=== PATIENT | female | born 1985 | race Asian ===

== ENCOUNTER 2016-09-26 19:46 | Emergency (ER) | payer OTHER, BC ==
--- NOTE | 2016-09-26 20:21 | EDM.PDOC ---
ED HPI Trauma - General Chief Complaint: Upper Extremity Injury/Pain Stated Complaint: WORK INJ X 2 DAYS/L ARM PAIN Time Seen by Provider: 09/26/16 19:50 Source: Reports: Patient History Limitations: Reports: No limitations - History of Present Illness INITIAL COMMENTS - FREE TEXT/NARRATIVE: Resents reporting that she slipped and fell on Sunday, striking her left forearm on the ground. Yesterday the forearm, wrist and hand became quite swollen with pain shooting all the way up the arm. By today the swelling has mostly resolved but she still has some tenderness in the right forearm and some pains going up to her shoulder. No other injuries. 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: Musculoskeletal History: Reports: None Neurological History: Reports: None Psychiatric History: Reports: None Endocrine/Metabolic History: Reports: None Hematologic History: Reports: None Dermatologic History: Reports: None - Infectious Disease History Infectious Disease History: Reports: None - Past Surgical History Female Surgical History: Reports: section Social & Family History - Family History Family Medical History: Noncontributory - Tobacco Use Smoking Status *Q: Never Smoker - Caffeine Use Caffeine Use: Reports: Coffee - Recreational Drug Use Recreational Drug Use: No Review of Systems - Review of Systems Review Of Systems: ROS reveals no pertinent complaints other than HPI. Trauma Exam - Physical Exam Exam: See Below Exam Limited By: No limitations General Appearance: Reports: alert, no apparent distress Head: Reports: atraumatic, normocephalic Ears: Reports: normal external exam Nose: Reports: normal inspection Throat/Mouth: Reports: Normal inspection Neck: Reports: non-tender Respiratory Exam: Reports: no respiratory distress Cardiovascular: Reports: normal peripheral pulses Extremities: Reports: normal range of motion, other (Left forearm, hand , wrist without swelling, ecchymosis, erythema, lesions or evidence of injury. CMS intact distally with strong radial pulse) Course - Vital Signs Last Recorded V/S: Last Vital Signs Temp 36.7 C 09/26/16 19:56 Pulse 91 09/26/16 19:56 Resp 16 09/26/16 19:56 BP 127/81 09/26/16 19:56 Pulse Ox 98 09/26/16 19:56 - Orders/Labs/Meds Orders: Active Orders 24 hr Category Date Time Status Forearm 2V Lt [CR] Stat Exams 09/26/16 20:06 Ordered Wrist 2V Lt [CR] Stat Exams 09/26/16 20:06 Ordered Departure - Departure Time of Disposition: 21:28 Disposition: Home, Self-Care 01 Condition: good Clinical Impression: Avulsion fracture Forms: ED Department Discharge Additional Instructions: 1. elevate left upper extremity is much as possible to decrease swelling, may use sling 2. Bro wrap for compression 3. Aleve 2 tabs in the morning and 2 tabs in the evening or ibuprofen 2-3 tabs 3 times a day as needed for pain 4. if symptoms do not improve or worsen please followup in primary care clinic. - My Orders Last 24 Hours: My Active Orders 09/26/16 20:06 Forearm 2V Lt [CR] Stat Wrist 2V Lt [CR] Stat - Assessment/Plan Last 24 Hours: My Active Orders 09/26/16 20:06 Forearm 2V Lt [CR] Stat Wrist 2V Lt [CR] Stat
[2016-09-26 21:48] VITALS: BP 120/80
--- NOTE | 2016-09-28 18:01 | CR ---
EXAM DATE: 09/26/16 PATIENT'S AGE: 30 Patient: ЮЛИЯ HARRISON Facility: [place], [place] Site . Site : 1985 Study: XRay Extremity Left forearm [id number]/14/2017 8:27:10 PM Ordering Physician: Doctor Montes Final Report: INDICATION: Fall. Technique: 2 views left forearm. Findings: Tiny ossific density along the ulnar styloid process consistent with a tiny avulsion fracture. No other fracture or dislocation in left forearm. Probable soft tissue swelling mid to proximal left forearm. Remainder negative. Dictated by Hi Barraza MD @ Sep 26 2016 8:27PM (Electronic Signature) Report Signed by Proxy and Original Signed Document filed in the Medical Record. MICA
--- NOTE | 2016-09-28 18:02 | CR ---
EXAM DATE: 09/26/16 PATIENT'S AGE: 30 Patient: ЮЛИЯ HARRISON Facility: [place], [place] Site . Site : 1985 Study: XRay Extremity Left wrist [id number]/14/2017 8:27:30 PM Ordering Physician: Doctor Montes Final Report: INDICATION: Fall. Technique: Two views left wrist and distal forearm. Findings: Tiny avulsion fracture deformity along the ulnar styloid process. Mild soft tissue swelling left wrist. Small lucencies involving carpal bones benign. Left wrist otherwise negative. Dictated by Hi Barraza MD @ Sep 26 2016 8:29PM (Electronic Signature) Report Signed by Proxy and Original Signed Document filed in the Medical Record. MICA
== END 2016-09-26 21:42 | disposition home or self-care (01) ==
LOC: MW.ED 19:46
DX: S52.92XA Unspecified fracture of left forearm, initial encounter for closed fracture (principal); W01.0XXA Fall on same level from slipping, tripping and stumbling without subsequent striking against object, initial encounter
CPT/HCPCS: 73090-26-LT; 73090-LT; 73100-26-LT; 73100-LT; 99283

== ENCOUNTER → 2016-10-06 | Outpatient (CLI) | payer BC ==
--- NOTE | 2016-10-09 15:06 | CR ---
EXAM DATE: 10/06/16 PATIENT'S AGE: 30 Patient: ЮЛИЯ HARRISON Facility: [place], [place] Site . Site : 1985 Study: XRay Shoulder Left [id number]/24/2017 5:07:51 PM Ordering Physician: Zeke Soto Final Report: Indication: Trauma and pain Technique: Left shoulder 3 views. Comparison: None Findings: Bones: Alignment is normal. No fractures or bone lesions. Joint spaces: Unremarkable. Soft tissues: Unremarkable. Impression: No sign of acute injury. Dictated by Bhupendra Gordon MD @ Oct 08 2016 3:04PM (Electronic Signature) Report Signed by Proxy and Original Signed Document filed in the Medical Record. MTDD
== END ==
LOC: MW.CHFP 16:32
PROVIDERS: ATTEND Physician Assistant
DX: S49.92XA Unspecified injury of left shoulder and upper arm, initial encounter (principal)
CPT/HCPCS: 73030-26-LT; 73030-LT

== ENCOUNTER 2017-09-29 20:15 | Emergency (ER) | payer BC ==
[2017-09-29] MEDS ORDERED: Albuterol/Ipratropium 3.0-0.5 MG/3 ML Neb Soln NEB ONE (20:22)
[2017-09-29 20:26] VITALS: BP 136/87
--- NOTE | 2017-09-29 20:43 | EDM.PDOC ---
ED HPI GENERAL MEDICAL PROBLEM - General Chief Complaint: ENT Problem Stated Complaint: CHEST PAIN/SHORTNESS OF BREATH Time Seen by Provider: 09/29/17 20:21 Source of Information: Reports: Patient History Limitations: Reports: No Limitations - History of Present Illness INITIAL COMMENTS - FREE TEXT/NARRATIVE: HISTORY AND PHYSICAL: History of present illness: Patient is a 31-year-old female who presents to the emergency room today with complaints of chest pressure, shortness of breath, sinus congestion, cough with blood tinged sputum, and several bouts of diarrhea. She states she's had these symptoms for approximately one week. She attributes these symptoms to having a sinus infection with nasal drainage. Intermittently will "spit up specks of blood". She also received some upsetting news about some family issues which has caused increased stress. Her at the bedside states that she has been distraught and upset. Patient believes this could be causing her shortness of breath and chest pressure. She denies any fever, chills, abdominal pain, nausea or vomiting. Denies any dysuria or constipation. Patient is otherwise healthy and takes no prescribed medications. Review of systems: As per history of present illness and below otherwise all systems reviewed and negative. Past medical history: As per history of present illness and as reviewed below otherwise noncontributory. Surgical history: As per history of present illness and as reviewed below otherwise noncontributory. Social history: No reported history of drug or alcohol abuse. Family history: As per history of present illness and as reviewed below otherwise noncontributory. Physical exam: General: Well-developed and well-nourished 31-year-old female. Alert and oriented. Nontoxic appearing and in no acute distress. HEENT: Atraumatic, normocephalic, pupils reactive, negative for conjunctival pallor or scleral icterus, mucous membranes moist, throat clear, maxillary sinus tenderness bilater, neck supple, nontender, trachea midline. No drooling or trismus. No meningeal signs. Lungs: Clear to auscultation, breath sounds equal bilaterally, chest nontender. Dry non-productive cough noted. Heart: S1S2, regular rate and rhythm Abdomen: Soft, nondistended, nontender. Negative for masses or hepatosplenomegaly. Negative for costovertebral tenderness. Pelvis: Stable nontender. Genitourinary: Deferred. Rectal: Deferred. Extremities: Atraumatic, moves all per self, negative for cords or calf pain. Neurovascular unremarkable. Neuro: Awake, alert, oriented. Cranial nerves II through XII unremarkable. Cerebellum unremarkable. Motor and sensory unremarkable throughout. Exam nonfocal. Laboratory results are within normal limits. I did discuss these findings with the patient. Due to her longevity of sinus pressure along with cough and will treat her with Augmentin 1 tab twice a day 10 days. Pro-air inhaler as needed. One tab of Ativan was given while she was here which did help alleviate some of her symptoms. I encouraged her to follow up with her primary care provider if she felt she would benefit from a when necessary medication. Patient voices understanding and is agreeable to plan of care. She denies any questions at this time. Diagnostics: CBC, CMP, troponin, EKG and a chest x-ray Therapeutics: DuoNeb, Ativan, Augmentin Impression: Sinusitis Bronchitis Anxiety Plan: 1. Take your antibiotic as directed. Use inhaler as needed for cough 1-2 puffs every 4-6 hours as needed. 2. Dane diet for the next 24-48 hours, advance as tolerated. Increase your oral fluids to prevent dehydration. 3. Please talk to your primary care provider about your concerns with anxiety. Return to the ED as needed and as discussed. Definitive disposition and diagnosis as appropriate pending reevaluation and review of above. 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: Musculoskeletal History: Reports: None Neurological History: Reports: None Psychiatric History: Reports: None Endocrine/Metabolic History: Reports: None Hematologic History: Reports: None Immunologic History: Reports: None Oncologic (Cancer) History: Reports: None Dermatologic History: Reports: None - Infectious Disease History Infectious Disease History: Reports: None - Past Surgical History Head Surgeries/Procedures: Reports: None Female Surgical History: Reports: Section Social & Family History - Family History Family Medical History: Noncontributory - Tobacco Use Smoking Status *Q: Never Smoker - Caffeine Use Caffeine Use: Reports: Coffee, Soda, Tea - Recreational Drug Use Recreational Drug Use: No ED ROS GENERAL - Review of Systems Review Of Systems: ROS reveals no pertinent complaints other than HPI. ED EXAM, GENERAL - Physical Exam Exam: See Below (See dictation) EKG INTERPRETATION EKG Date: 09/29/17 Time: 20:30 Rhythm: NSR Rate (Beats/Min): 86 Course - Vital Signs Last Recorded V/S: Last Vital Signs Temp 98.2 F 09/29/17 20:22 Pulse 92 09/29/17 20:22 Resp 18 09/29/17 20:22 BP 136/87 09/29/17 20:22 Pulse Ox 98 09/29/17 20:22 - Orders/Labs/Meds Orders: Active Orders 24 hr Category Date Time Status EKG Documentation Completion [RC] STAT Care 09/29/17 20:22 Active RT Aerosol Therapy [RC] ASDIRECTED Care 09/29/17 20:22 Active Chest 1V Frontal [CR] Stat Exams 09/29/17 20:22 Taken Labs: Laboratory Tests 09/29/17 09/29/17 Range/Units 20:40 20:40 WBC 7.20 (4.0-11.0) K/uL RBC 4.92 (4.30-5.90) M/uL Hgb 14.2 (12.0-16.0) g/dL Hct 41.9 (36.0-46.0) % MCV 85.2 (80.0-98.0) fL MCH 28.9 (27.0-32.0) pg MCHC 33.9 (31.0-37.0) g/dL RDW Std Deviation 39.7 (28.0-62.0) fl RDW Coeff of [place] 13 (11.0-15.0) % Plt Count 351 (150-400) K/uL MPV 8.80 (7.40-12.00) fL Neut % (Auto) 54.3 (48.0-80.0) % Lymph % (Auto) 36.4 (16.0-40.0) % [place] % (Auto) 7.9 (0.0-15.0) % Eos % (Auto) 1.0 (0.0-7.0) % Baso % (Auto) 0.4 (0.0-1.5) % Neut # (Auto) 3.9 (1.4-5.7) K/uL Lymph # (Auto) 2.6 H (0.6-2.4) K/uL [place] # (Auto) 0.6 (0.0-0.8) K/uL Eos # (Auto) 0.1 (0.0-0.7) K/uL Baso # (Auto) 0.0 (0.0-0.1) K/uL Nucleated RBC % 0.0 /100WBC Nucleated RBCs # 0 K/uL Sodium 136 (136-145) mmol/L Potassium 3.9 (3.5-5.1) mmol/L Chloride 102 (98-107) mmol/L Carbon Dioxide 22.6 (21.0-32.0) mmol/L BUN 15 (7.0-18.0) mg/dL Creatinine 0.7 (0.6-1.0) mg/dL Est Cr Clr Drug Dosing 94.56 mL/min Estimated GFR (MDRD) > 60.0 ml/min Glucose 84 (74-106) mg/dL Calcium 9.6 (8.5-10.1) mg/dL Total Bilirubin 0.5 (0.2-1.0) mg/dL AST 29 (15-37) IU/L ALT 24 (14-63) IU/L Alkaline Phosphatase 61 (46-116) U/L Troponin I < 0.050 (0.000-0.056) ng/mL Total Protein 8.3 H (6.4-8.2) g/dL Albumin 4.0 (3.4-5.0) g/dL Globulin 4.3 H (2.0-3.5) g/dL Albumin/Globulin Ratio 0.9 L (1.3-2.8) Meds: Medications Discontinued Medications Generic Name Dose Route Start Last Admin Trade Name Freq PRN Reason Stop Dose Admin Albuterol/Ipratropium 3 ml 09/29/17 20:22 09/29/17 20:42 Duoneb 3.0-0.5 Mg/3 Ml NEB 09/29/17 20:23 3 ml ONETIME ONE Administration Amoxicillin/Clavulanate Potassium 1 tab 09/29/17 21:38 09/29/17 21:47 Augmentin 875 Mg/125 Mg PO 09/29/17 21:39 1 tab ONETIME ONE Administration Lorazepam 1 mg 09/29/17 21:37 09/29/17 21:47 Ativan PO 09/29/17 21:38 1 mg ONETIME ONE Administration Departure - Departure Time of Disposition: 21:53 Disposition: Home, Self-Care 01 Clinical Impression: Anxiety, Bronchitis Sinusitis Qualifiers: Sinusitis location: maxillary Chronicity: acute Recurrence: non-recurrent Qualified Code(s): J01.00 - Acute maxillary sinusitis, unspecified - Discharge Information Instructions: Sinusitis, Adult, [id number] Referrals: PCP,None [Primary Care Provider] - Forms: ED Department Discharge Additional Instructions: My general discharge The following information is given to patients seen in the emergency department who are being discharged to home. This information is to outline your options for follow-up care. We provide all patients seen in our emergency department with a follow-up referral. The need for follow-up, as well as the timing and circumstances, are variable depending upon the specifics of your emergency department visit. If you don't have a primary care physician on staff, we will provide you with a referral. We always advise you to contact your personal physician following an emergency department visit to inform them of the circumstance of the visit and for follow-up with them and/or the need for any referrals to a consulting specialist. The emergency department will also refer you to a specialist when appropriate. This referral assures that you have the opportunity for follow-up care with a specialist. All of these measure are taken in an effort to provide you with optimal care, which includes your follow-up. Under all circumstances we always encourage you to contact your private physician who remains a resource for coordinating your care. When calling for follow-up care, please make the office aware that this follow-up is from your recent emergency room visit. If for any reason you are refused follow-up, please contact the [facility] Emergency Department at and asked to speak to the emergency department charge nurse. [facility] [address] [place] [id number] 1. Take your antibiotic as directed. Use inhaler as needed for cough 1-2 puffs every 4-6 hours as needed. 2. Dane diet for the next 24-48 hours, advance as tolerated. Increase your oral fluids to prevent dehydration. 3. Please talk to your primary care provider about your concerns with anxiety. Return to the ED as needed and as discussed. - My Orders Last 24 Hours: My Active Orders 09/29/17 20:22 EKG Documentation Completion [RC] STAT RT Aerosol Therapy [RC] ASDIRECTED Chest 1V Frontal [CR] Stat - Assessment/Plan Last 24 Hours: My Active Orders 09/29/17 20:22 EKG Documentation Completion [RC] STAT RT Aerosol Therapy [RC] ASDIRECTED Chest 1V Frontal [CR] Stat
[2017-09-29] MEDS ORDERED: LORazepam 1 MG Tab PO ONE (21:37)
[2017-09-29] MEDS ORDERED: Amoxicillin/Clavulanate K 875-125 MG Tab PO ONE (21:38)
[2017-09-29 21:50] LABS: CHLORIDE,CL 102 mmol/L (98-107); SODIUM,NA 136 mmol/L (136-145)
[2017-09-29] MEDS ORDERED: Acetaminophen 500 MG Tab PO ONE (21:55)
--- NOTE | 2017-10-01 16:16 | CR ---
EXAM DATE: 09/29/17 PATIENT'S AGE: 31 Patient: ЮЛИЯ HARRISON Facility: [place], [place] Site . Site : 1985 Study: XRay Chest [id number]/17/2018 9:05:06 PM Ordering Physician: Doctor Montes Final Report: HISTORY: Pain and shortness of breath. TECHNIQUE: One view of the chest. COMPARISON: No prior. FINDINGS: The cardiac size and pulmonary vasculature are within normal limits. No acute lung infiltrate or pulmonary edema. No pneumothorax or pleural effusion. No acute bony abnormality. IMPRESSION: No acute disease. Dictated by Mega Sorto MD @ 09/29/2017 9:29:55 PM Dictated by: Mega Sorto MD @ 09/29/2017 21:30:00 (Electronic Signature) Report Signed by Proxy. MICA
== END 2017-09-29 22:05 | disposition home or self-care (01) ==
LOC: MW.ED 20:15
DX: J01.00 Acute maxillary sinusitis, unspecified (principal); J40 Bronchitis, not specified as acute or chronic; F41.9 Anxiety disorder, unspecified; Z79.3 Long term (current) use of hormonal contraceptives
CPT/HCPCS: 36415; 71045; 80053; 84484; 85025; 93005; 94640; 99284; A9270

== ENCOUNTER 2020-11-14 15:36 | Emergency (ER) | payer OTHER, BC ==
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
[2020-11-14 18:06] VITALS: BP 132/72; PULSE 95
== END 2020-11-14 18:02 | disposition home or self-care (01) ==
LOC: MW.ED 15:36
DX: S19.9XXA Unspecified injury of neck, initial encounter (principal); S29.9XXA Unspecified injury of thorax, initial encounter; V43.52XA Car driver injured in collision with other type car in traffic accident, initial encounter
CPT/HCPCS: 72040; 72040-26; 72070; 72070-26; 99283; 99284

== ENCOUNTER 2020-12-02 17:27 | Emergency (ER) | payer BC, OTHER ==
[2020-12-02] MEDS ORDERED: Sodium Chloride 0.9% 10 ML Syringe FLUSH PRN (18:05)
[2020-12-02] MEDS ORDERED: Sodium Chloride 0.9% 2.5 ML Syringe FLUSH PRN (18:05)
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
[2020-12-02 18:58] LABS: BLOOD UREA NITROGEN,BUN 11 mg/dL (7.0-18.0); CARBON DIOXIDE,CO2 23.5 mmol/L (21.0-32.0); CHLORIDE,CL 103 mmol/L (98-107); GLUCOSE RANDOM 106 mg/dL (74-106); POTASSIUM,K 3.8 mmol/L (3.5-5.1); SODIUM,NA 136 mmol/L (136-145)
[2020-12-02] MEDS ORDERED: Meclizine 25 MG Tab PO ONE (19:15)
[2020-12-02] MEDS ORDERED: Iopamidol 755 MG/ML 500 ML Multipack Bottle IVPUSH STA (19:44)
[2020-12-02 20:07] VITALS: BP 134/76; PULSE 87
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
== END 2020-12-02 20:48 | disposition home or self-care (01) ==
LOC: MW.ED 17:27
DX: R42 Dizziness and giddiness (principal); M54.2 Cervicalgia
CPT/HCPCS: 70450; 70498; 80048; 84703; 85025; 99284; A9270; Q9967; 99283